=== PATIENT | female | born 1995 | race Caucasian/White ===

== ENCOUNTER 2018-11-20 11:36 | Emergency (ER) | payer BC ==
[2018-11-20 11:51] VITALS: BP 122/78
[2018-11-20] MEDS ORDERED: Ondansetron 4 MG Tab.DIS PO ONE (12:24)
--- NOTE | 2018-11-20 12:31 | EDM.PDOC ---
<Adrienne Mendoza - Last Filed: 11/20/18 13:14> ED HPI GENERAL MEDICAL PROBLEM - General Chief Complaint: Respiratory Problem Stated Complaint: UPPER RESPERATORY AND EMESIS x10 Time Seen by Provider: 11/20/18 12:00 Source of Information: Reports: Patient, Family (Boyfriend) History Limitations: Reports: No Limitations - History of Present Illness INITIAL COMMENTS - FREE TEXT/NARRATIVE: Saniya is a 23 year old female who presents to the ED today for chills, nightsweats, and vomiting that started last night. She states that she has had URI symptoms for about three weeks including productive cough, rhinorrhea, and headaches. She has had posttussive emesis. She was seen at the [facility] in and given a 10 day course of antibiotics, she is unsure of which type. She states that her symptoms did not resolve. Now, she has developed these new symptoms of chills, nightsweats, nausea, and emesis that is not correlated with cough. She denies SOB, diarrhea, urinary urgency/frequency/burning. She did take several at home tests and found they were all negative. 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 She denies any influenza vaccination this season. - Related Data Allergies Allergy/AdvReac Type Severity Reaction Status Date / Time hydromorphone [From Dilaudid] Allergy Anaphylactic Verified 11/20/18 11:51 Shock red wasps Allergy Anaphylactic Uncoded 08/05/15 16:10 Shock Home Meds: Home Meds Acetaminophen [Tylenol Extra Strength] 1,000 mg PO ONCALL PRN 12/19/15 [History] Ibuprofen 600 mg PO ONCALL PRN 12/19/15 [History] Benzonatate [Tessalon Perle] 100 mg PO Q8HR PRN #15 capsule 11/20/18 [Rx] Ondansetron [Zofran ODT] 4 mg PO Q6H PRN #15 tab.dis 11/20/18 [Rx] Past Medical History - Past Health History Medical/Surgical History: Denies Medical/Surgical History HEENT History: Reports: Impaired Vision Other HEENT History: Wears glasses DESIGN COORDINATOR History: Reports: Other DESIGN COORDINATOR History: Ovarian cyst - Past Surgical History HEENT Surgical History: Reports: Tonsillectomy GI Surgical History: Reports: Appendectomy Social & Family History - Family History Family Medical History: Noncontributory - Tobacco Use Smoking Status *Q: Former Smoker Used Tobacco, but Quit: Yes Month/Year Tobacco Last Used: 2019 Second Hand Smoke Exposure: No - Caffeine Use Caffeine Use: Reports: Coffee - Recreational Drug Use Recreational Drug Use: No ED ROS GENERAL - Review of Systems Review Of Systems: See Below Constitutional: Reports: Fever (tactile), Chills, Weakness, Fatigue, Night Sweats, Decreased Appetite HEENT: Reports: Ear Pain (left tragus pain), Throat Pain Respiratory: Reports: Pleuritic Chest Pain (with cough), Cough, Sputum (yellow- green). Denies: Shortness of Breath, Hemoptysis Cardiovascular: Reports: No Symptoms GI/Abdominal: Reports: Decreased Appetite, Nausea, Vomiting. Denies: Bloody Stool, Diarrhea, Hematemesis, Melena : Denies: Dysuria, Frequency, Hematuria, Urgency Skin: Reports: No Symptoms Neurological: Reports: Headache. Denies: Numbness, Tingling, Difficulty Walking , Change in Speech Psychiatric: Reports: No Symptoms ED EXAM, GENERAL - Physical Exam Exam: See Below Exam Limited By: No Limitations General Appearance: Alert, WD/WN Eye Exam: Bilateral Eye: EOMI Ears: Hearing Grossly Normal, Normal TMs, Other (left tragus is red and inflammed, canal is red. right external ear and canal are normal. TM normal bilaterally) Nose: Nasal Swelling, Nasal Drainage Throat/Mouth: Normal Inspection, Normal Oropharynx, Normal Voice, No Airway Compromise Head: Atraumatic, Normocephalic Neck: Supple, Lymphadenopathy (L), Tender Lateral (left sided) Respiratory/Chest: No Respiratory Distress, Lungs Clear, Normal Breath Sounds Cardiovascular: Regular Rate, Rhythm, No Edema GI/Abdominal: Normal Bowel Sounds, Soft, No Distention, No Mass, Tender ( suprapubic) Neurological: Alert, Oriented, CN II-XII Intact, Normal Cognition Psychiatric: Tearful (patient becomes tearful when talking about her vomiting, but easily composes herself) Skin Exam: Warm, Dry, Normal Color Course - Vital Signs Last Recorded V/S: Last Vital Signs Temp 97.8 F 11/20/18 14:12 Pulse 84 11/20/18 14:12 Resp 18 11/20/18 14:12 BP 122/78 11/20/18 11:47 Pulse Ox 97 11/20/18 14:12 - Orders/Labs/Meds Labs: Laboratory Tests 11/20/18 11/20/18 Range/Units 13:25 13:25 Urine Color Yellow (Yellow) Urine Appearance Slt cloudy H (Clear) Urine pH 7.0 (5.0-8.0) Ur Specific [place] 1.020 (1.005-1.030) Urine Protein 1+ H (Negative) Urine Glucose (UA) Negative (Negative) Urine Ketones 3+ H (Negative) Urine Occult Blood Negative (Negative) Urine Nitrite Negative (Negative) Urine Bilirubin 1+ H (Negative) Urine Urobilinogen 1.0 (0.2-1.0) Ur Leukocyte Esterase Negative (Negative) Urine RBC Not seen (0-5) /hpf Urine WBC 0-5 (0-5) /hpf Ur Epithelial Cells 0-5 (0-5) /hpf Urine Bacteria Rare (FEW) /hpf Urine Mucus Many H (FEW) /hpf Urine HCG, Qual Negative (NEGATIVE) Meds: Medications Discontinued Medications Generic Name Dose Route Start Last Admin Trade Name Freq PRN Reason Stop Dose Admin Ondansetron HCl 4 mg 11/20/18 12:24 11/20/18 12:31 Zofran Odt PO 11/20/18 12:25 4 mg ONETIME ONE Administration - Re-Assessments/Exams Free Text/Narrative Re-Assessment/Exam: 11/20/18 12:59 We will obtain a UA because patient has suprapubic tenderness. We will obtain influenza swab to rule to influenza. We will get a urine screen to rule out . We will also obtain CXR due to patient's cough duration, to rule out any pneumonia or pleural effusion. Patient is able to rehydrate orally , so we will hold off on IV fluid rehydration for now. Patient is quite nauseous so we will treat with Zofran. We will also attempt to find out which antibiotic she was treated with. 11/20/18 13:14 ED front office clerk did find that patient was prescribed 10 days of Augmentin 875/125 mg that was filled on 11/12/2018. Patient should technically still be taking this course, but stated that she was done with it. Departure - Departure Disposition: Home, Self-Care 01 Clinical Impression: Viral gastroenteritis - Discharge Information Prescriptions: Benzonatate [Tessalon Perle] 100 mg PO Q8HR PRN #15 capsule PRN Reason: Cough Ondansetron [Zofran ODT] 4 mg PO Q6H PRN #15 tab.dis PRN Reason: Nausea Instructions: Viral Gastroenteritis, Adult, [id number] Referrals: PCP,None [Primary Care Provider] - Forms: ED Department Discharge, ED Return to Work/School Form Additional Instructions: Recommend clear fluids and a bland diet for the next 2 days. [place] diet recommendations include bread, rice, applesauce, toast, soup broth etc. Recommend purchasing a probiotic. These are available [id number]. Zofran 1 tablet every 6-8 hours as needed for nausea. Tessalon Perles 10 or 2 caps every 8 hours as needed for cough. Expect your symptoms to last next 3-5 days. If your symptoms persist beyond 5 days recommend follow-up with family medicine. At the [facility] Cris Tovar or Madison Espinoza. Call [phone] to schedule with one of these providers. Please return the ER for symptoms change or worsen. <Rain Diego - Last Filed: 11/20/18 17:39> ED HPI GENERAL MEDICAL PROBLEM - History of Present Illness INITIAL COMMENTS - FREE TEXT/NARRATIVE: I have seen the patient and agree with the HPI as documented by STEVE Singh ED ROS GENERAL - Review of Systems Review Of Systems: See Below ED EXAM, GENERAL - Physical Exam Exam: See Below General Appearance: Alert, WD/WN, No Apparent Distress Course - Orders/Labs/Meds Labs: Laboratory Tests 11/20/18 11/20/18 Range/Units 13:25 13:25 Urine Color Yellow (Yellow) Urine Appearance Slt cloudy H (Clear) Urine pH 7.0 (5.0-8.0) Ur Specific [place] 1.020 (1.005-1.030) Urine Protein 1+ H (Negative) Urine Glucose (UA) Negative (Negative) Urine Ketones 3+ H (Negative) Urine Occult Blood Negative (Negative) Urine Nitrite Negative (Negative) Urine Bilirubin 1+ H (Negative) Urine Urobilinogen 1.0 (0.2-1.0) Ur Leukocyte Esterase Negative (Negative) Urine RBC Not seen (0-5) /hpf Urine WBC 0-5 (0-5) /hpf Ur Epithelial Cells 0-5 (0-5) /hpf Urine Bacteria Rare (FEW) /hpf Urine Mucus Many H (FEW) /hpf Urine HCG, Qual Negative (NEGATIVE) - Radiology Interpretation Free Text/Narrative:: Chest: Two views of the chest were obtained. Comparison: No prior chest x-ray. Heart size and mediastinum are normal. Thoracic scoliosis is seen. Lungs are clear with no acute parenchymal change. Impression: 1. Scoliosis. Nothing acute is appreciated. - Re-Assessments/Exams Free Text/Narrative Re-Assessment/Exam: 11/20/18 13:54 I have seen the patient and agree with the HPI, ROS and PE as documented by STEVE Singh. Influenza is negative. Reviewed the labs and imaging with the patient. Will discharge home at this time. Recommend symptomatic care. Discharge instructions as documented. Departure - Departure Time of Disposition: 13:55 Condition: Good - Discharge Information *PRESCRIPTION DRUG MONITORING PROGRAM REVIEWED*: No *COPY OF PRESCRIPTION DRUG MONITORING REPORT IN PATIENT OMAR: No
--- NOTE | 2018-11-20 13:36 | CR ---
Chest: Two views of the chest were obtained. Comparison: No prior chest x-ray. Heart size and mediastinum are normal. Thoracic scoliosis is seen. Lungs are clear with no acute parenchymal change. Impression: 1. Scoliosis. Nothing acute is appreciated. Diagnostic code #2
== END 2018-11-20 14:11 | disposition home or self-care (01) ==
LOC: JD.ED 11:36
DX: A08.4 Viral intestinal infection, unspecified (principal); Z88.5 Allergy status to narcotic agent; Z91.030 Bee allergy status; Z79.899 Other long term (current) drug therapy; Z87.891 Personal history of nicotine dependence
CPT/HCPCS: 71046; 81001; 81025; 87804; 99284; A9270

== ENCOUNTER 2020-07-26 19:46 | Emergency (ER) | payer MEDICAID, OTHER ==
--- NOTE | 2020-07-26 20:24 | EDM.PDOC ---
ED HPI GENERAL MEDICAL PROBLEM - General Chief Complaint: Head Injury Stated Complaint: POSS HEAD INJURY Time Seen by Provider: 07/26/20 19:50 Source of Information: Reports: Patient History Limitations: Reports: No Limitations - History of Present Illness INITIAL COMMENTS - FREE TEXT/NARRATIVE: The patient presents with a head injury. She slipped and fell on some ice cream her daughter spilled and landed on the right side of her head. She had no LOC but she was seeing spots when she got up. She took a nap and has a bad headache and was not acting herself. She has no vision changes, numbness or weakness. She denies any other injuries. Onset: Sudden Duration: Hour(s): Location: Reports: Head Quality: Reports: Sharp Severity: Moderate Improves with: Reports: None Worsens with: Reports: None Associated Symptoms: Reports: Headaches. Denies: Chest Pain, Cough, Fever/Chills, Nausea/Vomiting, Shortness of Breath Right Head Pain Score (Numeric/FACES): 6 - Related Data Allergies Allergy/AdvReac Type Severity Reaction Status Date / Time hydromorphone [From Dilaudid] Allergy Severe Anaphylactic Verified 07/26/20 19:56 Shock red wasps Allergy Severe Anaphylactic Uncoded 07/26/20 19:56 Shock Home Meds: Home Meds Acetaminophen [Tylenol Extra Strength] 1,000 mg PO ONCALL PRN 12/19/15 [History] Ibuprofen 600 mg PO ONCALL PRN 12/19/15 [History] Ondansetron [Zofran ODT] 4 mg PO Q6H PRN #15 tab.dis 11/20/18 [Rx] Past Medical History - Past Health History Medical/Surgical History: Denies Medical/Surgical History HEENT History: Reports: Impaired Vision Other HEENT History: Wears glasses Cardiovascular History: Reports: Heart Murmur Respiratory History: Reports: None Genitourinary History: Reports: None CLIENT ADVOCATE History: Reports: Other CLIENT ADVOCATE History: Ovarian cyst Musculoskeletal History: Reports: None Neurological History: Reports: None Psychiatric History: Reports: None Endocrine/Metabolic History: Reports: None Hematologic History: Reports: None Immunologic History: Reports: None Oncologic (Cancer) History: Reports: None - Infectious Disease History Infectious Disease History: Reports: None - Past Surgical History HEENT Surgical History: Reports: Tonsillectomy, Other (See Below) Other HEENT Surgeries/Procedures: Ear Tag Removal GI Surgical History: Reports: Appendectomy Social & Family History - Family History Family Medical History: Noncontributory - Tobacco Use Smoking Status *Q: Current Every Day Smoker Years of Tobacco use: 6 Packs/Tins Daily: 0.5 - Caffeine Use Caffeine Use: Reports: Coffee, Energy Drinks - Recreational Drug Use Recreational Drug Use: Yes Recreational Drug Type: Reports: Marijuana/Hashish ED ROS GENERAL - Review of Systems Review Of Systems: See Below Constitutional: Reports: No Symptoms HEENT: Reports: No Symptoms Respiratory: Reports: No Symptoms Cardiovascular: Reports: No Symptoms Endocrine: Reports: No Symptoms GI/Abdominal: Reports: No Symptoms : Reports: No Symptoms Musculoskeletal: Reports: No Symptoms Skin: Reports: No Symptoms Neurological: Reports: Headache. Denies: Numbness, Weakness ED EXAM, HEAD INJURY - Physical Exam Exam: See Below Exam Limited By: No Limitations General Appearance: Alert, No Apparent Distress Head: Other (Pain upon palpation to the right side of her head with mild edema) Eyes: Bilateral Eye: EOMI Ears: Normal External Exam Nose: Normal Inspection Neck: Non-Tender, Normal Alignment, Normal Inspection Respiratory: No Respiratory Distress, Lungs Clear, Normal Breath Sounds Cardiovascular: Regular Rate, Rhythm, No Edema, No Murmur GI/Abdominal Exam: Soft, Non-Tender, No Organomegaly, No Mass Back Exam: Normal Inspection Extremities: Normal Inspection Neurologic: No Motor/Sensory Deficits, Alert, Normal Mood/Affect, Oriented x 3 Course - Vital Signs Last Recorded V/S: Last Vital Signs Temp 98.1 F 07/26/20 19:52 Pulse 111 H 07/26/20 19:52 Resp 16 07/26/20 19:52 BP 109/68 07/26/20 19:52 Pulse Ox 98 07/26/20 19:52 - Re-Assessments/Exams Free Text/Narrative Re-Assessment/Exam: 07/26/20 20:24 I have ordered a CT of her head. 07/26/20 20:[address] looks good. She has a concussion. I will discharge her home. Departure - Departure Time of Disposition: 20:50 Disposition: Home, Self-Care 01 Condition: Good Clinical Impression: Fall Qualifiers: Encounter type: initial encounter Qualified Code(s): W19.XXXA - Unspecified fall, initial encounter Concussion Qualifiers: Encounter type: initial encounter Loss of consciousness presence/duration: without LOC Qualified Code(s): S06.0X0A - Concussion without loss of consciousness, initial encounter - Discharge Information *PRESCRIPTION DRUG MONITORING PROGRAM REVIEWED*: Not Applicable *COPY OF PRESCRIPTION DRUG MONITORING REPORT IN PATIENT OMAR: Not Applicable Referrals: PCP,None [Primary Care Provider] - Forms: ED Department Discharge, ED Return to Work/School Form Additional Instructions: Get some rest. Take tylenol or motrin for pain. Please return if you are worse. Sepsis Event Note (ED) - Evaluation Sepsis Screening Result: No Definite Risk - Focused Exam Vital Signs: Vital Signs Temp Pulse Resp BP Pulse Ox 07/26/20 19:52 98.1 F 111 H 16 109/68 98
--- NOTE | 2020-07-26 20:40 | CT ---
Head CT Technique: Multiple axial sections through the brain were obtained. Intravenous contrast was not utilized. Comparison: No previous intracranial imaging is available. Findings: Ventricles along with basal cisterns and sulci over the convexities are within normal limits for the patient's age. No abnormal parenchymal densities are seen. No evidence of intracranial hemorrhage. No midline shift or mass-effect is seen. Bone window settings were reviewed. Visualized paranasal sinuses show nothing acute. Visualized mastoid sinuses show nothing acute. No acute calvarial finding is appreciated. Impression: 1. Nothing acute is appreciated on noncontrast head CT exam. Diagnostic code #1 This report was dictated in MDT
[2020-07-26 21:21] VITALS: BP 105/77; PULSE 104
== END 2020-07-26 21:00 | disposition home or self-care (01) ==
LOC: JD.ED 19:46
DX: S06.0X0A Concussion without loss of consciousness, initial encounter (principal); F17.210 Nicotine dependence, cigarettes, uncomplicated; Z88.5 Allergy status to narcotic agent; Z91.030 Bee allergy status; W01.0XXA Fall on same level from slipping, tripping and stumbling without subsequent striking against object, initial encounter
CPT/HCPCS: 70450; 70450-26; 99282; 99283-25

== ENCOUNTER 2020-10-15 14:17 | Emergency (ER) | payer MEDICAID ==
[2020-10-15 14:30] VITALS: BP 136/97; PULSE 90
[2020-10-15] MEDS ORDERED: Sodium Chloride 0.9% 10 ML Syringe FLUSH PRN (14:53)
[2020-10-15] MEDS ORDERED: Metoclopramide 10 MG/2 ML SDV IVPUSH ONE (14:53)
[2020-10-15] MEDS ORDERED: Sodium Chloride 0.9% 1,000 ML IV ONE (14:53)
--- NOTE | 2020-10-15 15:02 | EDM.PDOC ---
ED HPI GENERAL MEDICAL PROBLEM - General Chief Complaint: Gastrointestinal Problem Stated Complaint: VOMITING/CHILLS/SWEATS [id number] Time Seen by Provider: 10/15/20 14:33 Source of Information: Reports: Patient History Limitations: Reports: No Limitations - History of Present Illness INITIAL COMMENTS - FREE TEXT/NARRATIVE: Patient is a 24-year-old female who presents to the ED complaining of nausea and vomiting for the past 2 month off and on. States she was evaluated at the walk- in clinic on 3 different occasions over the last 2 months and prescribed Zofran with some relief. She states she has had multiple Covid test which came back negative. They believe the intermittent nausea and vomiting is secondary to Covid. With that being said patient's also had a irregular menses. Last menses was approx. 1 month ago. As of recent patient has noted some intermittent vaginal bleeding over the past 48 hours. She suspects this is related to her menstrual cycle since she had 2 blood clots present with some bleeding that was consistent for menses. She had some intermittent abdominal cramping that started yesterday. She has noted to have a history of constipation and notes with having a bowel movement she would have to strain to pass stool. As of yesterday she has had 2 episodes of diarrhea with no blood or dark tarry stools present. There has been no dysuria as well. She denies any recent sexual intercourse. With onset of nausea and vomiting she does become slightly diaphoretic and notes some numbness and tingling to her fingers and her toes. She has been under a lot more stress as of recent. She denies any documented fever. Denies any URI-like symptoms including: Sore throat, runny nose, nasal drip, loss of taste loss of smell, body aches, or rash. She has not had any known Covid exposures. Past medical history includes: Anxiety and depression as well as acid reflux. She denies any increase of acid reflux as a recent. No acid reflux at this time. She is currently on albuterol inhaler and also Zofran. The provided a albuterol inhaler from the walk-in clinic since they thought she may be short of breath. She is on no control or has an IUD present. Allergies include Dilaudid. Surgical history includes appendectomy. She denies any recent alcohol use. Patient states she does use marijuana and notes last use was 2 weeks ago. She smokes 1 pack/day. history includes 1 para 1 miscarriage 0 and 0. Left Lower Abdomen Pain Score (Numeric/FACES): 2 - Related Data Allergies Allergy/AdvReac Type Severity Reaction Status Date / Time hydromorphone [From Dilaudid] Allergy Severe Anaphylactic Verified 10/15/20 14:30 Shock red wasps Allergy Severe Anaphylactic Uncoded 10/15/20 14:30 Shock Home Meds: Home Meds Ondansetron [Zofran ODT] 4 mg PO Q6H PRN #12 tab.dis 10/15/20 [Rx] Past Medical History - Past Health History Medical/Surgical History: Denies Medical/Surgical History HEENT History: Reports: Impaired Vision Other HEENT History: Wears glasses Cardiovascular History: Reports: Heart Murmur Respiratory History: Reports: None Genitourinary History: Reports: None WINDSCREEN FITTER History: Reports: Other WINDSCREEN FITTER History: Ovarian cyst Musculoskeletal History: Reports: None Neurological History: Reports: None Psychiatric History: Reports: None Endocrine/Metabolic History: Reports: None Hematologic History: Reports: None Immunologic History: Reports: None Oncologic (Cancer) History: Reports: None - Infectious Disease History Infectious Disease History: Reports: None - Past Surgical History HEENT Surgical History: Reports: Tonsillectomy, Other (See Below) Other HEENT Surgeries/Procedures: Ear Tag Removal GI Surgical History: Reports: Appendectomy Social & Family History - Family History Family Medical History: No Pertinent Family History - Tobacco Use Tobacco Use Status *Q: Current Every Day Tobacco User Years of Tobacco use: 7 Packs/Tins Daily: 1 - Caffeine Use Caffeine Use: Reports: None - Recreational Drug Use Recreational Drug Use: Yes Drug Use in Last 12 Months: Yes Recreational Drug Type: Reports: Marijuana/Hashish Other Recreational Drug Type: has not used in the last couple weeks ED ROS GENERAL - Review of Systems Review Of Systems: Comprehensive ROS is negative, except as noted in HPI. ED EXAM, GI/ABD - Physical Exam Exam: See Below Exam Limited By: No Limitations General Appearance: Alert, WD/WN, No Apparent Distress Ears: Hearing Grossly Normal Nose: Normal Inspection Throat/Mouth: Normal Inspection, Normal Oropharynx, Normal Voice, No Airway Compromise Head: Atraumatic, Normocephalic Neck: Normal Inspection, Supple, Non-Tender, Full Range of Motion Respiratory/Chest: No Respiratory Distress, Lungs Clear, Normal Breath Sounds, No Accessory Muscle Use, Chest Non-Tender Cardiovascular: Normal Peripheral Pulses, Regular Rate, Rhythm, No Murmur GI/Abdominal Exam: Soft, No Organomegaly, No Distention, Other (Mild left lower quadrant abdominal pain increased with palpation. Bowel sounds hyperactive..) #1 Interpretation EKG Date: 10/15/20 Time: 15:00 Rhythm: Other (Sinurs Rhythm) Rate (Beats/Min): 75 [place]: Normal P-Wave: Present QRS: Normal ST-T: Normal QT: Normal Comparison: NA - No Prior EKG Course - Vital Signs Last Recorded V/S: Last Vital Signs Temp 97.8 F 10/15/20 14:26 Pulse 90 10/15/20 14:26 Resp 16 10/15/20 14:26 BP 136/97 H 10/15/20 14:26 Pulse Ox 99 10/15/20 14:26 - Orders/Labs/Meds Labs: Laboratory Tests 10/15/20 10/15/20 10/15/20 Range/Units 15:00 15:00 15:05 WBC 6.76 (3.98-10.04) K/mm3 RBC 4.33 (3.98-5.22) M/mm3 Hgb 12.5 (11.2-15.7) gm/dl Hct 39.6 (34.1-44.9) % MCV 91.5 D (79.4-94.8) fl MCH 28.9 (25.6-32.2) pg MCHC 31.6 L (32.2-35.5) g/dl RDW Std Deviation 46.5 H (36.4-46.3) fL Plt Count 333 (182-369) K/mm3 MPV 9.1 L (9.4-12.3) fl Neutrophils % (Manual) 69 H (40-60) % Band Neutrophils % 0 (0-10) % Lymphocytes % (Manual) 24 (20-40) % Atypical Lymphs % 0 % Monocytes % (Manual) 3 (2-10) % Eosinophils % (Manual) 3 (0.7-5.8) % Basophils % (Manual) 1 (0.1-1.2) Platelet Estimate Adequate Plt Morphology Comment Normal RBC Morph Comment Normal Sodium 141 (136-145) mEq/L Potassium 3.6 (3.5-5.1) mEq/L Chloride 105 (98-107) mEq/L Carbon Dioxide 30 (21-32) mEq/L Anion Gap 9.6 (5-15) BUN 10 (7-18) mg/dL Creatinine 0.7 (0.55-1.02) mg/dL Est Cr Clr Drug Dosing 89.01 mL/min Estimated GFR (MDRD) > 60 (>60) mL/min BUN/Creatinine Ratio 14.3 (14-18) Glucose 81 (74-106) mg/dL Calcium 8.5 (8.5-10.1) mg/dL Total Bilirubin 0.5 (0.2-1.0) mg/dL AST 15 (15-37) U/L ALT 24 (14-59) U/L Alkaline Phosphatase 41 L (46-116) U/L C-Reactive Protein 0.3 (<1.0) mg/dL Total Protein 6.7 (6.4-8.2) g/dl Albumin 3.6 (3.4-5.0) g/dl Globulin 3.1 gm/dL Albumin/Globulin Ratio 1.2 (1-2) Lipase 109 (73-393) U/L Urine Color (Yellow) Urine Appearance (Clear) Urine pH (5.0-8.0) Ur Specific [place] (1.005-1.030) Urine Protein (Negative) Urine Glucose (UA) (Negative) Urine Ketones (Negative) Urine Occult Blood (Negative) Urine Nitrite (Negative) Urine Bilirubin (Negative) Urine Urobilinogen (0.2-1.0) Ur Leukocyte Esterase (Negative) Urine RBC (0-5) /hpf Urine WBC (0-5) /hpf Ur Squamous Epith Cells (0-5) /hpf Amorphous Sediment (NOT SEEN) /hpf Urine Bacteria (FEW) /hpf Urine Mucus (FEW) /hpf Urine HCG, Qual Negative (NEGATIVE) Urine Opiates Screen (NPAFEA=089) Ur Buprenorphine Scrn (CUTOFF=10) Ur Oxycodone Screen (FGB0ZA=681) Urine Methadone Screen (CDXYTT=623) Ur Propoxyphene Screen (WJKJYQ=073) Ur Barbiturates Screen (DAQBDV=011) Ur Tricyclics Screen (KDXNNZ=500) Ur Phencyclidine Scrn (CUTOFF=25) Ur Amphetamine Screen (XSQXLI=945) U Methamphetamines Scrn (DCEDJS=151) U Benzodiazepines Scrn (XPGOLZ=217) U Cocaine Metab Screen (BFKBIT=285) U Marijuana (THC) Screen (CUTOFF=50) 10/15/20 10/15/20 Range/Units 15:05 15:05 WBC (3.98-10.04) K/mm3 RBC (3.98-5.22) M/mm3 Hgb (11.2-15.7) gm/dl Hct (34.1-44.9) % MCV (79.4-94.8) fl MCH (25.6-32.2) pg MCHC (32.2-35.5) g/dl RDW Std Deviation (36.4-46.3) fL Plt Count (182-369) K/mm3 MPV (9.4-12.3) fl Neutrophils % (Manual) (40-60) % Band Neutrophils % (0-10) % Lymphocytes % (Manual) (20-40) % Atypical Lymphs % % Monocytes % (Manual) (2-10) % Eosinophils % (Manual) (0.7-5.8) % Basophils % (Manual) (0.1-1.2) Platelet Estimate Plt Morphology Comment RBC Morph Comment Sodium (136-145) mEq/L Potassium (3.5-5.1) mEq/L Chloride (98-107) mEq/L Carbon Dioxide (21-32) mEq/L Anion Gap (5-15) BUN (7-18) mg/dL Creatinine (0.55-1.02) mg/dL Est Cr Clr Drug Dosing mL/min Estimated GFR (MDRD) (>60) mL/min BUN/Creatinine Ratio (14-18) Glucose (74-106) mg/dL Calcium (8.5-10.1) mg/dL Total Bilirubin (0.2-1.0) mg/dL AST (15-37) U/L ALT (14-59) U/L Alkaline Phosphatase (46-116) U/L C-Reactive Protein (<1.0) mg/dL Total Protein (6.4-8.2) g/dl Albumin (3.4-5.0) g/dl Globulin gm/dL Albumin/Globulin Ratio (1-2) Lipase (73-393) U/L Urine Color Yellow (Yellow) Urine Appearance Slt cloudy H (Clear) Urine pH 8.5 H (5.0-8.0) Ur Specific [place] 1.020 (1.005-1.030) Urine Protein Trace H (Negative) Urine Glucose (UA) Negative (Negative) Urine Ketones Negative (Negative) Urine Occult Blood 2+ H (Negative) Urine Nitrite Negative (Negative) Urine Bilirubin Negative (Negative) Urine Urobilinogen 0.2 (0.2-1.0) Ur Leukocyte Esterase Negative (Negative) Urine RBC 0-5 (0-5) /hpf Urine WBC 0-5 (0-5) /hpf Ur Squamous Epith Cells 10-20 H (0-5) /hpf Amorphous Sediment Many H (NOT SEEN) /hpf Urine Bacteria Few (FEW) /hpf Urine Mucus Moderate H (FEW) /hpf Urine HCG, Qual (NEGATIVE) Urine Opiates Screen Negative (AFKAFA=818) Ur Buprenorphine Scrn Negative (CUTOFF=10) Ur Oxycodone Screen Negative (PTA5EM=639) Urine Methadone Screen Negative (WALFMY=794) Ur Propoxyphene Screen Negative (MSZXQN=464) Ur Barbiturates Screen Negative (KBDDMK=837) Ur Tricyclics Screen Negative (DNIGDI=875) Ur Phencyclidine Scrn Negative (CUTOFF=25) Ur Amphetamine Screen Presumptive positive H (BLELFT=477) U Methamphetamines Scrn Presumptive positive H (LIAPFB=938) U Benzodiazepines Scrn Negative (FDSSJD=234) U Cocaine Metab Screen Negative (KPHLKS=268) U Marijuana (THC) Screen Presumptive positive H (CUTOFF=50) Meds: Medications Discontinued Medications Generic Name Dose Route Start Last Admin Trade Name Vivi PRN Reason Stop Dose Admin Acetaminophen 975 mg 10/15/20 16:56 10/15/20 17:04 Tylenol PO 10/15/20 16:57 Not Given NOW ONE Al Hydroxide/Mg Hydroxide 30 0 ml 10/15/20 15:11 10/15/20 15:15 ml/ Lidocaine HCl 15 ml PO 10/15/20 15:12 45 ml ONETIME ONE Administration Sodium Chloride 1,000 mls @ 999 mls/hr 10/15/20 14:53 10/15/20 15:13 Normal Saline IV 10/15/20 15:53 999 mls/hr ONETIME ONE Administration Metoclopramide HCl 5 mg 10/15/20 14:53 10/15/20 15:13 Reglan IVPUSH 10/15/20 14:54 5 mg ONETIME ONE Administration Sodium Chloride 10 ml 10/15/20 14:53 10/15/20 15:15 Saline Flush FLUSH 10 ml ASDIRECTED PRN Administration Keep Vein Open - Re-Assessments/Exams Free Text/Narrative Re-Assessment/Exam: Initial vital signs blood pressure 136/97, heart rate 90, SPO2 99% on room air, respirate 16, and temperature is 97.8. Patient does not appear to be in acute distress. There is some emesis small amount in the emesis bag. Stomach contents. No coffee-ground emesis or bright blood present. Examination and questioning she did not vomit once. On exam she does have some slight tenderness noted to the left lower quadrant with only mild increase in discomfort with palpation. Bowel sounds are hyperactive. She notes a history of constipation with recent diarrhea with 1-2 episodes. She has noted some early satiety with eating. No increase in acid reflux. She has had her appendix removed. Gallbladder remains. IV will be established with normal saline 1 L IV bolus. Reglan 5 mg IVP. Initial labs and studies will include: CBC, lipase, CHEM 14, CRP, hCG, 2 view of the abdomen, and urine drug tox as well as UA. Xray of the abdomen reviewed with Dr. Cordova. Increased stool pattern preset with no obvious free air and or signs of obstruction. Final interpretation is pending. 10/15/20 16:00 Labs reviewed: CBC and chemistry panel were essentially normal. Patient 109. CRP 0.3. Positive amphetamines. Positive methamphetamines. Positive marijuana.UA pH 8.5, cloudy appearance, trace protein, 2+ occult blood, squamous epithelial cells 10-20, amorphous sediment many, urine moderate. hCG is pending. 10/15/20 16:03 Assessment, patient sitting up in bed. On examination of her belly she still has some lower quadrant abdominal discomfort. Discussed lab results with the patient. Denies any recent use of marijuana and admits to using methamphetamines approximately [address] of the abdomen and pelvis with IV contrast will be obtained. HCG results: Negative 1739 CT abdomen pelvis impression:Intrahepatic central periportal edema of uncertain etiology/clinical significance. This is a nonspecific finding. May be seen with acute viral hepatitis, cholangitis, pyelonephritis, pancreatitis or trauma, etc. Otherwise unremarkable CT examination of the abdomen and pelvis. Suspect pain the patient is currently experiencing may be associated with her menses since she is spotting. I will have the patient follow-up with her PCP this coming week for reevaluation. Return precautions were discussed with the patient. I also encouraged the patient to quit using methamphetamine and also marijuana. I advised her that marijuana can cause cannabinoid induced hyperemesis. Again she voiced her understanding. Discharge instructions as document. Departure - Departure Time of Disposition: 17:46 Disposition: Home, Self-Care 01 Condition: Good, Poor Clinical Impression: Vaginal bleeding, Cannabinoid hyperemesis syndrome, Methamphetamine abuse, Constipation Protein in urine Qualifiers: Proteinuria type: unspecified Qualified Code(s): R80.9 - Proteinuria, unspecified Abdominal pain Qualifiers: Abdominal location: left lower quadrant Qualified Code(s): R10.32 - Left lower quadrant pain - Discharge Information Prescriptions: Ondansetron [Zofran ODT] 4 mg PO Q6H PRN #12 tab.dis PRN Reason: Nausea/Vomiting Instructions: Cannabis Use Disorder, Viral Gastroenteritis, Adult, [id number], Constipation, Adult, [id number], Abdominal Pain, Adult, [id number], Nausea and Vomiting, Adult, Pain Without a Known Cause, Dysfunctional Uterine Bleeding, Hematuria, Adult Referrals: Raina Rubio NP [Primary Care Provider] - Forms: ED Department Discharge, ED Return to Work/School Form Additional Instructions: As discussed urinalysis did reveal protein and blood present. You are also positive for marijuana, amphetamines, and methamphetamine. Please seek help for substance use disorder. As far as the pain to left lower quadrant I suspect this is either related to ovulation since you are having some vaginal spotting at this time with the irregular menses. Can also be related to constipation since you noted some increased hard stools with difficulty with passing. I suspect the nausea and vomiting is secondary to cannabinoid hyperemesis. Please stop using marijuana since this will only persist. YOu may have gastritis as well due to diarrhea and nausea vomiting thus suggest taking Zofran as prescribed and stick with a clear liquid diet for the next 2 days. Please establish medical care with a primary care provider of your choosing to be evaluated this week. Return to the ED for any new or worsening symptoms as discussed. May take miralax 17 grams daily with 8oz of water for constipation. Sepsis Event Note (ED) - Evaluation Sepsis Screening Result: No Definite Risk
[2020-10-15] MEDS ORDERED: Alum Hydrox/Mag Hydrox/Simeth 30 ML, Lidocaine 2% 15 ML PO ONE ×2 (15:11)
[2020-10-15] MEDS ORDERED: Acetaminophen 325 MG Tab PO ONE (16:56)
--- NOTE | 2020-10-16 08:01 | CR ---
Abdomen: Supine and upright views of the abdomen were obtained. Comparison: Prior CT abdomen and pelvis exam of 08/08/15. Findings: Bowel gas pattern: Bowel gas pattern appears normal. Calcifications: Calcifications are seen within the pelvis which are felt compatible with multiple phleboliths. Other findings: No free air is seen. Bony structures show nothing acute. Impression: 1. Nothing acute is seen. Diagnostic code #2
--- NOTE | 2020-10-16 08:43 | CT ---
CT abdomen and pelvis Technique: Multiple axial sections were obtained from above the dome of the diaphragm inferiorly through the pubic symphysis. Delayed images were obtained through the abdomen and pelvis. Reconstructed coronal and sagittal images were also obtained. Comparison: Previous CT abdomen and pelvis study of 08/05/50. Findings: Visualized lung bases: Lung bases show no acute abnormality. Liver: Very minimal low density is seen around portions of the periportal region. Liver shows no additional abnormality. Spleen: Spleen size is normal. Adrenal: Adrenal glands show no nodule. Kidneys: Kidneys show symmetric contrast enhancement. No hydronephrosis or mass is seen. Delayed images shows contrast within the ureters as well as within the bladder. Abdominal aorta, retroperitoneum and mesenteric: No aneurysm is seen. No retroperitoneal adenopathy or mesenteric abnormalities are seen. Pelvis: No pelvic mass or adenopathy is seen. No free fluid is identified. Surgical clips are seen next to the cecum most likely related to previous appendicitis. Bone window settings were reviewed. No acute osseous finding is appreciated. Impression: 1. Slight low density around the periportal region. This may be normal variant as well as differential including viral hepatitis, cholangitis as well as other inflammatory type change. 2. Surgical clips presumably from prior appendectomy. 3. No additional abnormality is appreciated on CT study of the abdomen and pelvis. Diagnostic code #3 I agree with preliminary report from [facility], finalized on 10/15/20, 6:30 PM STRUCTURAL DESIGNER.
== END 2020-10-15 18:06 | disposition home or self-care (01) ==
LOC: JD.ED 14:17
DX: K59.00 Constipation, unspecified (principal); N93.9 Abnormal uterine and vaginal bleeding, unspecified; F12.90 Cannabis use, unspecified, uncomplicated; R11.2 Nausea with vomiting, unspecified; F15.10 Other stimulant abuse, uncomplicated; R80.9 Proteinuria, unspecified; F17.210 Nicotine dependence, cigarettes, uncomplicated; Z88.5 Allergy status to narcotic agent; Z91.038 Other insect allergy status
CPT/HCPCS: 36415; 74019; 74177; 80053; 80306; 81001; 81025; 83690; 85007; 85027; 86140; 93005; 96374; 99284; A9270; J2765; J7030; 93010

== ENCOUNTER 2021-03-06 19:59 | Emergency (ER) | payer MEDICAID, OTHER ==
[2021-03-06 20:10] VITALS: BP 139/88; PULSE 87
[2021-03-06] MEDS ORDERED: Ondansetron 4 MG Tab.DIS PO ONE (20:17)
--- NOTE | 2021-03-06 20:22 | EDM.PDOC ---
ED HPI GENERAL MEDICAL PROBLEM - General Chief Complaint: Gastrointestinal Problem Stated Complaint: POSS PG NAUSEA VOMITING Time Seen by Provider: 03/06/21 20:03 Source of Information: Reports: Patient, RN Notes Reviewed History Limitations: Reports: No Limitations - History of Present Illness INITIAL COMMENTS - FREE TEXT/NARRATIVE: Patient is a 25-year-old female presenting to the emergency department with complaints of a 2-week history of nausea. She has been able to keep down fluids, however states that anytime she eats or drinks anything she becomes significantly nauseous. She reports that she was due to get her. Around [facility], however she did not get it. She took a test at home yesterday and it came back positive. She reports that this is her second . With her first she had morning sickness all the way through until she gave . Aside from the nausea, she is feeling well. She has not establish care with an SENIOR HR MANAGER thus far. She reports that she try to go to the [facility] walk-in [facility] to get nausea medication, however they were closed, therefore she came to the ER. - Related Data Allergies Allergy/AdvReac Type Severity Reaction Status Date / Time hydromorphone [From Dilaudid] Allergy Severe Anaphylactic Verified 03/06/21 20:10 Shock red wasps Allergy Severe Anaphylactic Uncoded 03/06/21 20:10 Shock Home Meds: Home Meds Ondansetron [Zofran ODT] 4 mg PO Q6H PRN #20 tab.dis 03/06/21 [Rx] Past Medical History - Past Health History Medical/Surgical History: Denies Medical/Surgical History HEENT History: Reports: Impaired Vision Other HEENT History: Wears glasses Cardiovascular History: Reports: Heart Murmur Respiratory History: Reports: None Genitourinary History: Reports: None SENIOR HR MANAGER History: Reports: Other SENIOR HR MANAGER History: Ovarian cyst Musculoskeletal History: Reports: None Neurological History: Reports: None Psychiatric History: Reports: Addiction Other Psychiatric History: drug use Endocrine/Metabolic History: Reports: None Hematologic History: Reports: None Immunologic History: Reports: None Oncologic (Cancer) History: Reports: None - Infectious Disease History Infectious Disease History: Reports: None - Past Surgical History HEENT Surgical History: Reports: Tonsillectomy, Other (See Below) Other HEENT Surgeries/Procedures: Ear Tag Removal GI Surgical History: Reports: Appendectomy Social & Family History - Family History Family Medical History: No Pertinent Family History - Tobacco Use Tobacco Use Status *Q: Current Every Day Tobacco User Years of Tobacco use: 10 Packs/Tins Daily: 0.5 - Caffeine Use Caffeine Use: Reports: None - Recreational Drug Use Recreational Drug Type: Reports: Marijuana/Hashish ED ROS GENERAL - Review of Systems Review Of Systems: See Below Constitutional: Reports: No Symptoms HEENT: Reports: No Symptoms Respiratory: Reports: No Symptoms Cardiovascular: Reports: No Symptoms Endocrine: Reports: No Symptoms GI/Abdominal: Reports: Nausea, Vomiting. Denies: Abdominal Pain, Diarrhea : Reports: No Symptoms Musculoskeletal: Reports: No Symptoms Skin: Reports: No Symptoms Neurological: Reports: No Symptoms Psychiatric: Reports: No Symptoms Hematologic/Lymphatic: Reports: No Symptoms Immunologic: Reports: No Symptoms ED EXAM - Physical Exam Exam: See Below General Appearance: Alert, WD/WN, No Apparent Distress Respiratory/Chest: No Respiratory Distress, Lungs Clear, Normal Breath Sounds, No Accessory Muscle Use, Chest Non-Tender Cardiovascular: Normal Peripheral Pulses, Regular Rate, Rhythm, No Edema, No Gallop, No JVD, No Murmur, No Rub Neurological: Alert, Oriented, CN II-XII Intact, Normal Cognition, Normal Gait, Normal Reflexes, No Motor/Sensory Deficits Psychiatric: Normal Affect, Normal Mood Skin Exam: Warm, Dry, Intact, Normal Color, No Rash Course - Vital Signs Last Recorded V/S: Last Vital Signs Temp 98.5 F 03/06/21 20:07 Pulse 87 03/06/21 20:07 Resp 14 03/06/21 20:07 BP 139/88 03/06/21 20:07 Pulse Ox 100 03/06/21 20:07 - Orders/Labs/Meds Labs: Laboratory Tests 03/06/21 03/06/21 Range/Units 20:17 20:26 Urine Color Light yellow (Yellow) Urine Appearance Clear (Clear) Urine pH 7.0 (5.0-8.0) Ur Specific [place] 1.010 (1.005-1.030) Urine Protein Negative (Negative) Urine Glucose (UA) Negative (Negative) Urine Ketones Negative (Negative) Urine Occult Blood Negative (Negative) Urine Nitrite Negative (Negative) Urine Bilirubin Negative (Negative) Urine Urobilinogen 0.2 (0.2-1.0) Ur Leukocyte Esterase Trace H (Negative) Urine RBC Not seen (0-5) /hpf Urine WBC 0-5 (0-5) /hpf Ur Squamous Epith Cells 0-5 (0-5) /hpf Urine Bacteria Few (FEW) /hpf Urine Mucus Few (FEW) /hpf Urine HCG, Qual Positive (NEGATIVE) Meds: Medications Discontinued Medications Generic Name Dose Route Start Last Admin Trade Name Freq PRN Reason Stop Dose Admin Ondansetron HCl 4 mg 03/06/21 20:17 03/06/21 20:31 Ondansetron 4 Mg Tab.Dis PO 03/06/21 20:18 4 mg ONETIME ONE Administration - Re-Assessments/Exams Free Text/Narrative Re-Assessment/Exam: 03/06/21 21:05 Urine is positive. Urinalysis does not show infection. I will send a prescription for Zofran for nausea to [place] pharmacy. Recommend patient call tomorrow to set up follow-up with an SENIOR HR MANAGER for management of her morning sickness. Discharge instructions as documented. Departure - Departure Time of Disposition: 21:05 Disposition: Home, Self-Care 01 Condition: Good Clinical Impression: Nausea and vomiting during - Discharge Information *PRESCRIPTION DRUG MONITORING PROGRAM REVIEWED*: No *COPY OF PRESCRIPTION DRUG MONITORING REPORT IN PATIENT OMAR: No Prescriptions: Ondansetron [Zofran ODT] 4 mg PO Q6H PRN #20 tab.dis PRN Reason: Nausea/Vomiting Referrals: Raina Rubio NP [Primary Care Provider] - Forms: ED Department Discharge Additional Instructions: You were seen in the emergency department today for evaluation with regards to nausea and vomiting for the last 2 weeks. Your test here did also return positive. You have been provided prescription for Zofran. Use this as needed for nausea. Ensure that you are taking an adequate amount of fluid. Recommend calling tomorrow morning to set up a follow-up with an SENIOR HR MANAGER of your choice for ongoing management of your morning sickness and . If you should experience any new or worsening symptoms, please not hesitate to return to the emergency department for reevaluation. Sepsis Event Note (ED) - Evaluation Sepsis Screening Result: No Definite Risk - Focused Exam Vital Signs: Vital Signs Temp Pulse Resp BP Pulse Ox 03/06/21 20:07 98.5 F 87 14 139/88 100
== END 2021-03-06 21:20 | disposition home or self-care (01) ==
LOC: JD.ED 19:59
DX: O21.9 Vomiting of pregnancy, unspecified (principal); Z88.5 Allergy status to narcotic agent; Z91.038 Other insect allergy status; Z72.0 Tobacco use; Z3A.00 Weeks of gestation of pregnancy not specified
CPT/HCPCS: 81001; 81025; 99284; A9270; 99283

== ENCOUNTER 2021-03-12 09:40 | Emergency (ER) | payer MEDICAID ==
[2021-03-12 09:52] VITALS: BP 142/90; PULSE 78
[2021-03-12] MEDS ORDERED: Sodium Chloride 0.9% 10 ML Syringe FLUSH PRN (10:08)
[2021-03-12] MEDS ORDERED: Ondansetron 4 MG/2 ML SDV IVPUSH ONE (10:08)
[2021-03-12] MEDS ORDERED: Sodium Chloride 0.9% 1,000 ML IV SCH (10:15)
[2021-03-12] MEDS ORDERED: Metoclopramide 10 MG/2 ML SDV IVPUSH ONE (11:22)
--- NOTE | 2021-03-12 11:28 | EDM.PDOC ---
ED HPI GENERAL MEDICAL PROBLEM - General Chief Complaint: Gastrointestinal Problem Stated Complaint: VOMITING Time Seen by Provider: 03/12/21 10:01 Source of Information: Reports: Patient, RN Notes Reviewed - History of Present Illness INITIAL COMMENTS - FREE TEXT/NARRATIVE: 25 yr yr old female about 7 to 8 wks . Has been having difficulty with nausea, vomiting for several wks some days worse than others, today is much worse. Still having dry heaves. No pain or cramping. Abdominal Pain Score (Numeric/FACES): 5 - Related Data Allergies Allergy/AdvReac Type Severity Reaction Status Date / Time hydromorphone [From Dilaudid] Allergy Severe Anaphylactic Verified 03/12/21 09:57 Shock red wasps Allergy Severe Anaphylactic Uncoded 03/12/21 09:57 Shock Home Meds: Home Meds Ondansetron [Zofran ODT] 4 mg PO Q6H PRN #20 tab.dis 03/06/21 [Rx] Past Medical History - Past Health History Medical/Surgical History: Denies Medical/Surgical History HEENT History: Reports: Impaired Vision Other HEENT History: Wears glasses Cardiovascular History: Reports: Heart Murmur Respiratory History: Reports: None Genitourinary History: Reports: None SENIOR SAFETY MANAGEMENT CONSULTANT History: Reports: Other SENIOR SAFETY MANAGEMENT CONSULTANT History: Ovarian cyst Musculoskeletal History: Reports: None Neurological History: Reports: None Psychiatric History: Reports: Addiction Other Psychiatric History: drug use Endocrine/Metabolic History: Reports: None Hematologic History: Reports: None Immunologic History: Reports: None Oncologic (Cancer) History: Reports: None - Infectious Disease History Infectious Disease History: Reports: None - Past Surgical History HEENT Surgical History: Reports: Tonsillectomy, Other (See Below) Other HEENT Surgeries/Procedures: Ear Tag Removal GI Surgical History: Reports: Appendectomy Social & Family History - Family History Family Medical History: No Pertinent Family History - Tobacco Use Tobacco Use Status *Q: Former Tobacco User Used Tobacco, but Quit: Yes Month/Year Tobacco Last Used: 02/2021 - Caffeine Use Caffeine Use: Reports: Coffee, Soda - Recreational Drug Use Recreational Drug Use: No ED ROS GENERAL - Review of Systems Review Of Systems: See Below Constitutional: Denies: Fever, Chills HEENT: Reports: No Symptoms Respiratory: Reports: No Symptoms Cardiovascular: Denies: Chest Pain GI/Abdominal: Reports: Nausea, Vomiting. Denies: Abdominal Pain, Diarrhea Musculoskeletal: Denies: Back Pain Skin: Reports: No Symptoms Neurological: Reports: Dizziness ED EXAM - Physical Exam Exam: See Below General Appearance: Alert, Mild Distress Throat/Mouth: Normal Inspection Head: Atraumatic Neck: Supple Respiratory/Chest: No Respiratory Distress, Lungs Clear, Normal Breath Sounds Cardiovascular: Regular Rate, Rhythm GI/Abdominal Exam: Soft, Non-Tender. No: Guarding Neurological: Alert, Oriented, No Motor/Sensory Deficits Skin Exam: Warm, Dry, Normal Color, No Rash Course - Vital Signs Last Recorded V/S: Last Vital Signs Temp 95.9 F L 03/12/21 09:47 Pulse 78 03/12/21 09:47 Resp 16 03/12/21 09:47 BP 142/90 H 03/12/21 09:47 Pulse Ox 100 03/12/21 09:47 - Orders/Labs/Meds Orders: Active Orders 24 hr Category Date Time Status Peripheral IV Insertion Adult [OM.PC] Stat Oth 03/12/21 10:08 Ordered Labs: Laboratory Tests 03/12/21 03/12/21 03/12/21 Range/Units 10:20 10:20 10:20 WBC 10.55 H (3.98-10.04) K/mm3 RBC 4.08 (3.98-5.22) M/mm3 Hgb 11.8 (11.2-15.7) gm/dl Hct 36.6 (34.1-44.9) % MCV 89.7 (79.4-94.8) fl MCH 28.9 (25.6-32.2) pg MCHC 32.2 (32.2-35.5) g/dl RDW Std Deviation 44.2 (36.4-46.3) fL Plt Count 354 (182-369) K/mm3 MPV 9.6 (9.4-12.3) fl Neut % (Auto) 90.1 H (34.0-71.1) % Lymph % (Auto) 7.0 L (19.3-51.7) % [place] % (Auto) 2.7 L (4.7-12.5) % Eos % (Auto) 0 L (0.7-5.8) Baso % (Auto) 0.1 (0.1-1.2) % Neut # (Auto) 9.50 H (1.56-6.13) K/mm3 Lymph # (Auto) 0.74 L (1.18-3.74) K/mm3 [place] # (Auto) 0.29 (0.24-0.36) K/mm3 Eos # (Auto) 0.00 L (0.04-0.36) K/mm3 Baso # (Auto) 0.01 (0.01-0.08) K/mm3 Manual Slide Review Abnormal smear Sodium 137 (136-145) mEq/L Potassium 3.7 (3.5-5.1) mEq/L Chloride 101 (98-107) mEq/L Carbon Dioxide 27 (21-32) mEq/L Anion Gap 12.7 (5-15) BUN 8 (7-18) mg/dL Creatinine 0.6 (0.55-1.02) mg/dL Est Cr Clr Drug Dosing 102.95 mL/min Estimated GFR (MDRD) > 60 (>60) mL/min BUN/Creatinine Ratio 13.3 L (14-18) Glucose 141 H (74-106) mg/dL Calcium 8.2 L (8.5-10.1) mg/dL Total Bilirubin 0.4 (0.2-1.0) mg/dL AST 22 (15-37) U/L ALT 33 (14-59) U/L Alkaline Phosphatase 47 (46-116) U/L Total Protein 7.1 (6.4-8.2) g/dl Albumin 3.6 (3.4-5.0) g/dl Globulin 3.5 gm/dL Albumin/Globulin Ratio 1.0 (1-2) HCG, Qual Positive H (NEGATIVE) Meds: Medications Discontinued Medications Generic Name Dose Route Start Last Admin Trade Name Freq PRN Reason Stop Dose Admin Sodium Chloride 1,000 mls @ 999 mls/hr 03/12/21 10:15 03/12/21 10:18 Normal Saline IV 999 mls/hr ONETIME EDWARD Administration Metoclopramide HCl 2.5 mg 03/12/21 11:22 Metoclopramide 10 Mg/2 Ml Sdv IVPUSH 03/12/21 11:23 ONETIME ONE Ondansetron HCl 4 mg 03/12/21 10:08 03/12/21 10:19 Ondansetron 4 Mg/2 Ml Sdv IVPUSH 03/12/21 10:09 4 mg ONETIME ONE Administration Sodium Chloride 10 ml 03/12/21 10:08 03/12/21 10:19 Sodium Chloride 0.9% 10 Ml Syringe FLUSH 10 ml ASDIRECTED PRN Administration Keep Vein Open - Re-Assessments/Exams Free Text/Narrative Re-Assessment/Exam: 03/12/21 17:53 Feeling much better at time of discharge after 1 liter NS, zofran 4 mg IV. Departure - Departure Time of Disposition: 11:27 Disposition: Home, Self-Care 01 Condition: Fair Clinical Impression: First trimester , Vomiting - Discharge Information Instructions: First Trimester of , [id number], Vomiting, Adult Referrals: Larissa Rene MD [Primary Care Provider] - Forms: ED Department Discharge Additional Instructions: Clear liquids and bland diet as tolerated. Continue zofran q 8 hr as needed, see OB provider tomorrow as planned. Sepsis Event Note (ED) - Evaluation Sepsis Screening Result: No Definite Risk - Focused Exam Vital Signs: Vital Signs Temp Pulse Resp BP Pulse Ox 03/12/21 09:47 95.9 F L 78 16 142/90 H 100 - My Orders Last 24 Hours: My Active Orders 03/12/21 10:08 Peripheral IV Insertion Adult [OM.PC] Stat - Assessment/Plan Last 24 Hours: My Active Orders 03/12/21 10:08 Peripheral IV Insertion Adult [OM.PC] Stat
== END 2021-03-12 11:55 | disposition home or self-care (01) ==
LOC: JD.ED 09:40
DX: O21.9 Vomiting of pregnancy, unspecified (principal); Z3A.01 Less than 8 weeks gestation of pregnancy; Z88.5 Allergy status to narcotic agent; Z91.048 Other nonmedicinal substance allergy status; Z87.891 Personal history of nicotine dependence
CPT/HCPCS: 36415; 80053; 84703; 85025; 96374; 99284; J2405; J7030; 99283

== ENCOUNTER 2021-04-12 20:10 | Emergency (ER) | payer MEDICAID ==
[2021-04-12] MEDS ORDERED: Sodium Chloride 0.9% 10 ML Syringe FLUSH PRN (20:43)
[2021-04-12] MEDS ORDERED: Promethazine 25 MG in Sodium Chloride 0.9% 50 ML IV ONE (20:44)
[2021-04-12] MEDS ORDERED: Sodium Chloride 0.9% 1,000 ML IV ONE (20:44)
--- NOTE | 2021-04-12 20:48 | EDM.PDOC ---
ED HPI GENERAL MEDICAL PROBLEM - General Chief Complaint: Gastrointestinal Problem Stated Complaint: THROWING UP FOR 2 DAYS/11 WKS PG Time Seen by Provider: 04/12/21 20:18 Source of Information: Reports: Patient, RN Notes Reviewed History Limitations: Reports: No Limitations - History of Present Illness INITIAL COMMENTS - FREE TEXT/NARRATIVE: Patient is a 25-year-old female who presents to the ER for the evaluation of her nausea and vomiting in . She states that she is 11 weeks , she is a , and she developed intractable nausea and vomiting roughly 2 or 3 days ago. She notes that she is not been able to keep any sort of fluids down today whatsoever. Has been seen in this ER for vomiting in the past, received some fluids Zofran and Reglan but notes after she left, the patient vomited. She does have Zofran at home, did take 8 mg roughly at around 12 PM. Notes that this does not seem to be helping much at all. EXECUTIVE ASSOCIATE is Dr. Rene. She did have an ultrasound of the , and this demonstrated an intrauterine but has had no further work-up for this. States she has some generalized abdominal cramping, which she contributes to the vomiting that she has been having. She is not having any vaginal bleeding, or any sort of vaginal fluid leaking. She states she has felt hot and cold over the past few days, but has had no discernible fever. She has had no cough or shortness of breath. - Related Data Allergies Allergy/AdvReac Type Severity Reaction Status Date / Time fentanyl Allergy Severe Anaphylactic Verified 04/12/21 20:25 Shock hydromorphone [From Dilaudid] Allergy Severe Anaphylactic Verified 04/12/21 20:25 Shock red wasps Allergy Severe Anaphylactic Uncoded 04/12/21 20:25 Shock Home Meds: Home Meds Doxylamine Succinate/Vit B6 [Michael Garcia 10-10 mg Tablet] 1 tab PO DAILY #30 tablet. 04/12/21 [Rx] Ondansetron [Zofran ODT] 8 mg PO Q6H PRN 04/12/21 [History] Past Medical History HEENT History: Reports: Impaired Vision Other HEENT History: Wears glasses Cardiovascular History: Reports: Heart Murmur EXECUTIVE ASSOCIATE History: Reports: Hyperemesis, , Other (See Below) : 2 Para: 1 Other EXECUTIVE ASSOCIATE History: Ovarian cyst Musculoskeletal History: Reports: Other (See Below) Other Musculoskeletal History: Scoliosis Psychiatric History: Reports: Addiction - Past Surgical History HEENT Surgical History: Reports: Tonsillectomy GI Surgical History: Reports: Appendectomy Dermatological Surgical History: Reports: Other (See Below) (skin tag removal on ear) Social & Family History - Family History Family Medical History: No Pertinent Family History - Tobacco Use Tobacco Use Status *Q: Former Tobacco User Used Tobacco, but Quit: Yes Month/Year Tobacco Last Used: 02/28 - Caffeine Use Caffeine Use: Reports: Soda - Recreational Drug Use Recreational Drug Use: Yes Drug Use in Last 12 Months: Yes Recreational Drug Type: Reports: Marijuana/Hashish (states that she quit when she found out she was ; but states she did use 1 week ago, because this is one of the only things that helps with the nausea.), Other (see below) (states "other drugs" but quit when she found out she was pregnany) ED ROS GENERAL - Review of Systems Review Of Systems: Comprehensive ROS is negative, except as noted in HPI. ED EXAM, GI/ABD - Physical Exam Exam: See Below Exam Limited By: No Limitations General Appearance: Alert, WD/WN, No Apparent Distress Respiratory/Chest: No Respiratory Distress, Lungs Clear, Normal Breath Sounds, No Accessory Muscle Use, Chest Non-Tender Cardiovascular: Normal Peripheral Pulses, Regular Rate, Rhythm, No Edema GI/Abdominal Exam: Normal Bowel Sounds, Soft, No Distention, No Mass, Tender (generalized) Extremities: Normal Inspection, Normal Capillary Refill Neurological: Alert, Oriented, Normal Cognition, No Motor/Sensory Deficits Psychiatric: Normal Affect, Normal Mood Skin Exam: Warm, Dry, Intact, Normal Color, No Rash Course - Vital Signs Last Recorded V/S: Last Vital Signs Temp 97.6 F 04/12/21 20:21 Pulse 78 04/12/21 20:21 Resp 16 04/12/21 20:21 BP 119/78 04/12/21 20:21 Pulse Ox 100 04/12/21 20:21 - Orders/Labs/Meds Orders: Active Orders 24 hr Category Date Time Status Peripheral IV Care [RC] . DIRECTED Care 04/12/21 20:44 Ordered CANNABINOID (THC) CONFIRM, UR Urgent Lab 06/03/21 21:44 Ordered UA W/MICROSCOPIC [URIN] Stat Lab 04/12/21 20:43 Ordered Sodium Chloride 0.9% [Saline Flush] Med 04/12/21 20:43 Active 10 ml FLUSH ASDIRECTED PRN Peripheral IV Insertion Adult [OM.PC] Routine Oth 04/12/21 20:43 Ordered Medication Orders Sodium Chloride (Sodium Chloride 0.9% 10 Ml Syringe) 10 ml FLUSH ASDIRECTED PRN PRN Reason: Keep Vein Open Last Admin: 04/12/21 21:05 Dose: 10 ml Documented by: HAYLEY Labs: Laboratory Tests 04/12/21 04/12/21 04/12/21 Range/Units 20:18 20:18 21:00 WBC 13.54 H (3.98-10.04) K/mm3 RBC 4.50 (3.98-5.22) M/mm3 Hgb 13.1 (11.2-15.7) gm/dl Hct 40.5 (34.1-44.9) % MCV 90.0 (79.4-94.8) fl MCH 29.1 (25.6-32.2) pg MCHC 32.3 (32.2-35.5) g/dl RDW Std Deviation 46.8 H (36.4-46.3) fL Plt Count 408 H (182-369) K/mm3 MPV 9.6 (9.4-12.3) fl Neut % (Auto) 77.9 H (34.0-71.1) % Lymph % (Auto) 13.6 L (19.3-51.7) % [place] % (Auto) 7.7 (4.7-12.5) % Eos % (Auto) 0.5 L (0.7-5.8) Baso % (Auto) 0.1 (0.1-1.2) % Neut # (Auto) 10.54 H (1.56-6.13) K/mm3 Lymph # (Auto) 1.84 (1.18-3.74) K/mm3 [place] # (Auto) 1.04 H (0.24-0.36) K/mm3 Eos # (Auto) 0.07 (0.04-0.36) K/mm3 Baso # (Auto) 0.02 (0.01-0.08) K/mm3 Manual Slide Review Sodium 137 (136-145) mEq/L Potassium 3.4 L (3.5-5.1) mEq/L Chloride 100 (98-107) mEq/L Carbon Dioxide 26 (21-32) mEq/L Anion Gap 14.4 (5-15) BUN 4 L (7-18) mg/dL Creatinine 0.6 (0.55-1.02) mg/dL Est Cr Clr Drug Dosing 102.95 mL/min Estimated GFR (MDRD) > 60 (>60) mL/min BUN/Creatinine Ratio 6.7 L (14-18) Glucose 88 (70-99) mg/dL Calcium 8.9 (8.5-10.1) mg/dL Total Bilirubin 0.4 (0.2-1.0) mg/dL AST 20 (15-37) U/L ALT 27 (14-59) U/L Alkaline Phosphatase 47 (46-116) U/L Total Protein 7.6 (6.4-8.2) g/dl Albumin 4.0 (3.4-5.0) g/dl Globulin 3.6 gm/dL Albumin/Globulin Ratio 1.1 (1-2) Urine Color Yellow (Yellow) Urine Appearance Cloudy H (Clear) Urine pH 7.0 (5.0-8.0) Ur Specific [place] 1.025 (1.005-1.030) Urine Protein Negative (Negative) Urine Glucose (UA) Negative (Negative) Urine Ketones 3+ H (Negative) Urine Occult Blood Negative (Negative) Urine Nitrite Negative (Negative) Urine Bilirubin Negative (Negative) Urine Urobilinogen 0.2 (0.2-1.0) Ur Leukocyte Esterase Negative (Negative) Urine Opiates Screen (FJEXWC=894) Ur Buprenorphine Scrn (CUTOFF=10) Ur Oxycodone Screen (TIV2NG=196) Urine Methadone Screen (UHAOCR=622) Ur Propoxyphene Screen (TNMOLG=908) Ur Barbiturates Screen (OUHKOT=452) Ur Tricyclics Screen (QISRGW=907) Ur Phencyclidine Scrn (CUTOFF=25) Ur Amphetamine Screen (NLJJWQ=693) U Methamphetamines Scrn (GRKLUQ=217) U Benzodiazepines Scrn (JXFPBN=938) U Cocaine Metab Screen (PNYEWL=023) U Marijuana (THC) Screen (CUTOFF=50) 04/12/21 Range/Units 21:00 WBC (3.98-10.04) K/mm3 RBC (3.98-5.22) M/mm3 Hgb (11.2-15.7) gm/dl Hct (34.1-44.9) % MCV (79.4-94.8) fl MCH (25.6-32.2) pg MCHC (32.2-35.5) g/dl RDW Std Deviation (36.4-46.3) fL Plt Count (182-369) K/mm3 MPV (9.4-12.3) fl Neut % (Auto) (34.0-71.1) % Lymph % (Auto) (19.3-51.7) % [place] % (Auto) (4.7-12.5) % Eos % (Auto) (0.7-5.8) Baso % (Auto) (0.1-1.2) % Neut # (Auto) (1.56-6.13) K/mm3 Lymph # (Auto) (1.18-3.74) K/mm3 [place] # (Auto) (0.24-0.36) K/mm3 Eos # (Auto) (0.04-0.36) K/mm3 Baso # (Auto) (0.01-0.08) K/mm3 Manual Slide Review Sodium (136-145) mEq/L Potassium (3.5-5.1) mEq/L Chloride (98-107) mEq/L Carbon Dioxide (21-32) mEq/L Anion Gap (5-15) BUN (7-18) mg/dL Creatinine (0.55-1.02) mg/dL Est Cr Clr Drug Dosing mL/min Estimated GFR (MDRD) (>60) mL/min BUN/Creatinine Ratio (14-18) Glucose (70-99) mg/dL Calcium (8.5-10.1) mg/dL Total Bilirubin (0.2-1.0) mg/dL AST (15-37) U/L ALT (14-59) U/L Alkaline Phosphatase (46-116) U/L Total Protein (6.4-8.2) g/dl Albumin (3.4-5.0) g/dl Globulin gm/dL Albumin/Globulin Ratio (1-2) Urine Color (Yellow) Urine Appearance (Clear) Urine pH (5.0-8.0) Ur Specific [place] (1.005-1.030) Urine Protein (Negative) Urine Glucose (UA) (Negative) Urine Ketones (Negative) Urine Occult Blood (Negative) Urine Nitrite (Negative) Urine Bilirubin (Negative) Urine Urobilinogen (0.2-1.0) Ur Leukocyte Esterase (Negative) Urine Opiates Screen Negative (UDNNRO=749) Ur Buprenorphine Scrn Negative (CUTOFF=10) Ur Oxycodone Screen Negative (SYI1SG=832) Urine Methadone Screen Negative (ZVTYDH=811) Ur Propoxyphene Screen Negative (HMRTDH=550) Ur Barbiturates Screen Negative (MKTNAF=207) Ur Tricyclics Screen Negative (ICARDB=676) Ur Phencyclidine Scrn Negative (CUTOFF=25) Ur Amphetamine Screen Presumptive positive H (ULSPZU=896) U Methamphetamines Scrn Presumptive positive H (MDTGBA=309) U Benzodiazepines Scrn Negative (JOHJDK=091) U Cocaine Metab Screen Negative (TFZIQC=422) U Marijuana (THC) Screen Presumptive positive H (CUTOFF=50) Meds: Medications Generic Name Dose Route Start Last Admin Trade Name Freq PRN Reason Stop Dose Admin Sodium Chloride 10 ml 04/12/21 20:43 04/12/21 21:05 Sodium Chloride 0.9% 10 Ml Syringe FLUSH 10 ml ASDIRECTED PRN Administration Keep Vein Open Discontinued Medications Generic Name Dose Route Start Last Admin Trade Name Freq PRN Reason Stop Dose Admin Promethazine HCl 25 mg/ Sodium 51 mls @ 100 mls/hr 04/12/21 20:44 04/12/21 21:04 Chloride IV 04/12/21 21:14 100 mls/hr ONETIME ONE Administration Sodium Chloride 1,000 mls @ 999 mls/hr 04/12/21 20:44 04/12/21 21:05 Normal Saline IV 04/12/21 21:44 999 mls/hr ONETIME ONE Administration - Re-Assessments/Exams Free Text/Narrative Re-Assessment/Exam: 04/12/21 20:48 Patient presents to the ER for her nausea and vomiting in , we will go ahead get IV fluids started, get some basic labs for evaluation, she will be given 25 mg of Phenergan, as she states that she took Zofran at home today and this did not seem to be helping much. 04/12/21 21:27 Labs have begun to result, patient CBC is elevated at 13.54, but can be explained by her . CMP demonstrates no focal signs of dehydration like an elevated anion gap, E TC. There are some ketones in her urine, which would be suggestive of possible dehydration. The IV fluid should help, we will reassess after the IV fluids have been given time to infuse. 04/12/21 21:48 Patient must be feeling a little bit better, she is sleeping at this time. Patient's urine drug screen did come back presumptive positive for methamphetamine, amphetamine, and marijuana use. We will go ahead and do confirmatory testing as she is 11 weeks . Nursing staff will be filing a 960 report at this time. We will go ahead and discharge the patient after her fluids have been infused. Departure - Departure Time of Disposition: 21:49 Disposition: Home, Self-Care 01 Condition: Good Clinical Impression: Hyperemesis arising during - Discharge Information *PRESCRIPTION DRUG MONITORING PROGRAM REVIEWED*: No *COPY OF PRESCRIPTION DRUG MONITORING REPORT IN PATIENT OMAR: No Prescriptions: Doxylamine Succinate/Vit B6 [Diclegis Dr 10-10 mg Tablet] 1 tab PO DAILY #30 tablet.dr Instructions: Hyperemesis Gravidarum Referrals: Raina Rubio NP [Primary Care Provider] - Forms: ED Department Discharge Additional Instructions: You were evaluated in the ER today for your nausea/vomiting. You have been given some IV fluids and IV medications to help with this, and this seemed to work for you. You have been given a prescription for Diclegis which is a mixture of 2 medications to help with your ongoing nausea. Dosing will be 2 tabs at bedtime, if nausea persists for longer than 2 days, then increase to 1 tab in AM and 2 tabs at bedtime; if nausea continues to persist for 2 more days- then increase to 1 tab in AM, 1 tab in afternoon and 2 tabs at night. Do not exceed more than 4 tabs in a 24 hr time span. This medication should be taken on an empty stomach. Please follow up with your EXECUTIVE ASSOCIATE at your next scheduled appointment. Do no hesitate to return to the ER if your symptoms change or worsen. Sepsis Event Note (ED) - Evaluation Sepsis Screening Result: No Definite Risk - Focused Exam Vital Signs: Vital Signs Temp Pulse Resp BP Pulse Ox 04/12/21 20:21 97.6 F 78 16 119/78 100 - My Orders Last 24 Hours: My Active Orders 04/12/21 20:43 UA W/MICROSCOPIC [URIN] Stat Sodium Chloride 0.9% [Saline Flush] 10 ml FLUSH ASDIRECTED PRN Peripheral IV Insertion Adult [OM.PC] Routine 04/12/21 20:44 Peripheral IV Care [RC] . DIRECTED 04/12/21 21:44 CANNABINOID (THC) CONFIRM, UR Urgent - Assessment/Plan Last 24 Hours: My Active Orders 04/12/21 20:43 UA W/MICROSCOPIC [URIN] Stat Sodium Chloride 0.9% [Saline Flush] 10 ml FLUSH ASDIRECTED PRN Peripheral IV Insertion Adult [OM.PC] Routine 04/12/21 20:44 Peripheral IV Care [RC] . DIRECTED 04/12/21 21:44 CANNABINOID (THC) CONFIRM, UR Urgent
[2021-04-12] MEDS ORDERED: Metoclopramide 10 MG/2 ML SDV IVPUSH ONE (22:19)
[2021-04-12] MEDS ORDERED: diphenhydrAMINE 50 MG/ML SDV IVPUSH ONE (22:31)
[2021-04-13 00:28] VITALS: BP 123/86; PULSE 62
== END 2021-04-12 23:25 | disposition home or self-care (01) ==
LOC: JD.ED 20:10
DX: O21.0 Mild hyperemesis gravidarum (principal); Z3A.11 11 weeks gestation of pregnancy; Z88.5 Allergy status to narcotic agent; Z91.030 Bee allergy status; Z88.8 Allergy status to other drugs, medicaments and biological substances
CPT/HCPCS: 36415; 80053; 80306; 80349; 81001; 85025; 96365; 96375; 99284; J1200; J2550; J2765; J7030; 99283; G0480

== ENCOUNTER 2023-01-24 16:36 | Emergency (ER) | payer MEDICAID ==
[2023-01-24] MEDS ORDERED: Orphenadrine 100 MG Tab.ER PO ONE (17:50)
[2023-01-24 19:22] VITALS: BP 109/77; PULSE 86
== END 2023-01-24 19:57 | disposition home or self-care (01) ==
LOC: JD.ED 16:36
DX: M54.9 Dorsalgia, unspecified (principal); Z88.5 Allergy status to narcotic agent; Z88.8 Allergy status to other drugs, medicaments and biological substances; Z91.038 Other insect allergy status; Z86.16 Personal history of COVID-19
CPT/HCPCS: 70450; 72128; 99284; A9270

== ENCOUNTER 2025-08-02 21:33 | Emergency (ER) | payer MEDICAID, OTHER ==
[2025-08-02] MEDS ORDERED: Sodium Chloride 0.9% 10 ML Syringe FLUSH PRN (22:12)
[2025-08-02] MEDS ORDERED: Iopamidol 612 MG/ML 30 ML SDV IVPUSH ONE (22:15)
[2025-08-02 22:33] LABS: BASOPHILS ABSOLUTE AUTO 0.1 K/mm3 (0.0-0.2); BASOPHILS PERCENT AUTO 0.4 % (0.0-1.0); EOSINOPHILS ABSOLUTE AUTO 0.2 K/mm3 (0.0-0.4); EOSINOPHILS PERCENT AUTO 1.3 % (0.0-6.0); IMMATURE GRAN ABSOLUTE AUTO 0.05 K/mm3 (0.00-0.05); IMMATURE GRAN PERCENT AUTO 0.4 % (0.0-0.4); LYMPHOCYTES ABSOLUTE AUTO 1.8 K/mm3 (1.0-4.8); LYMPHOCYTES PERCENT AUTO 14.1 % (24.0-44.0); MEAN PLATELET VOLUME 9.0 fl (9.4-12.3); MONOCYTES ABSOLUTE AUTO 1.0 K/mm3 (0.0-0.8); MONOCYTES PERCENT AUTO 7.4 % (0.0-8.0); NEUTROPHILS ABSOLUTE AUTO 9.9 K/mm3 (1.8-7.7); NEUTROPHILS PERCENT AUTO 76.4 % (41.0-71.0); NRBC ABSOLUTE 0.00 (0.00-0.02); NRBC PERCENT 0.0 % (0.0-0.2); PLATELET COUNT,PLT 410 K/mm3 (150-400); RED BLOOD CELL COUNT 4.44 M/mm3 (4.10-5.30); WHITE BLOOD CELL COUNT,WBC 12.92 K/mm3 (3.9-11.3)
[2025-08-02 22:57] LABS: A/G RATIO 1.1 (1-2); ALANINE AMINOTRANSFERASE,ALT 37.0 U/L (14-59); ASPARTATE AMNIOTRANSFERASE,AST 24.0 U/L (15-37); BILIRUBIN TOTAL 0.3 mg/dL (0.2-1.0); BLOOD UREA NITROGEN,BUN 15.0 mg/dL (7-18); CARBON DIOXIDE,CO2 29.0 mEq/L (21-32); CHLORIDE,CL 103.0 mEq/L (98-107); CREATININE 0.8 mg/dL (0.55-1.02); EST CRCL DRUG DOSING (CG) 74.53 mL/min; ESTIMATED GFR 102.0 mL/min (>60); GLUCOSE RANDOM 72.0 mg/dL (70-99); POTASSIUM,K 3.4 mEq/L (3.5-5.1); PROTEIN TOTAL,TP 7.2 g/dl (6.4-8.2); SODIUM,NA 140.0 mEq/L (136-145)
[2025-08-02] MEDS: Sodium Chloride 0.9% 10 ML Syringe FLUSH ONE (22:58)
[2025-08-02] MEDS: Iopamidol 612 MG/ML 100 ML Bottle IVPUSH ONE (22:58)
[2025-08-02 23:04] LABS: ETHANOL BLOOD MEDICAL 0.0 gm% (0.00)
[2025-08-02] MEDS: Ondansetron 4 MG Tab.DIS PO ONE (23:07)
[2025-08-02] MEDS: Acetaminophen/oxyCODONE 325-5 MG Tab PO ONE (23:08)
[2025-08-03 01:23] VITALS: BP 118/73; PULSE 86
== END 2025-08-03 01:20 | disposition home or self-care (01) ==
LOC: JD.ED 21:33
DX: S70.11XA Contusion of right thigh, initial encounter (principal); Z79.899 Other long term (current) drug therapy; Z88.8 Allergy status to other drugs, medicaments and biological substances; Z88.5 Allergy status to narcotic agent; Z90.49 Acquired absence of other specified parts of digestive tract; V89.2XXA Person injured in unspecified motor-vehicle accident, traffic, initial encounter
CPT/HCPCS: 36415; 70450; 72125; 72128; 72131; 73590; 74177; 80053; 80307; 84703; 85025; 99284; A9270; J7030; Q9967